=== PATIENT | female | born 1995 | race Hispanic/Latino ===

== ENCOUNTER 2018-01-18 08:51 | Inpatient (IN) | payer MEDICAID, OTHER, SELFPAY ==
[2018-01-18 09:34] VITALS: BMI 32.3
[2018-01-18] MEDS: Lactated Ringer's 1,000 ML IV SCH ×2 (10:05→14:30)
--- NOTE | 2018-01-18 10:21 | PDOC.LDHP ---
Labor and Delivery H&P Chief complaint: contractions, loss of fluid HPI: 22 yo @ 39w1d by LMP c/w 11 wk CRL. Antepartum course benign. Due date: 01/23/18 Dating criteria: last menstrual period Grav: 2 Para: 1 OB History Details: TSVD 2014 Current complications: none Abnormal US findings: No Past Medical History: Denies Current medications: pre-caitlyn vitamins Previous surgical history: none Allergies/Adverse Reactions: Allergies Allergy/AdvReac Type Severity Reaction Status Date / Time No Known Allergies Allergy Unverified 01/18/18 09:27 Social history: none - Physical Exam Vital signs reviewed and normal: yes (Initial HTN on first assessment, all other wnl.) General: NAD Heart: RRR Lungs: nonlabored breathing Abdomen: gravid Extremeties: no edema FHT: category 1 (140s, mod jolynn, +accels, no decels) [place] contractions every: q6 + min when tracing - Vaginal Exam cm dilated: 3 (per RN exam ) Effacement: 50% Station: -2 - OB Labs Blood type: O RH: positive Antibody Screen: negative HIV: negative RPR: negative HEPSAg: negative 1 hour GCT: negative GBS: negative Urine drug screen: not done Rubella: immune - Assessment L&D Assessment: term rupture in membranes - Plan Plan: admit to L&D, labor augmentation if indicated, informed consent obtained, anesthesia consult for pain management -: Monitor BPs, some mild range. Add preE labs.
[2018-01-18] MEDS ORDERED: Ibuprofen 800 MG TAB PO PRN (10:24)
[2018-01-18] MEDS ORDERED: Promethazine HCl 25 MG/ML VIAL IM PRN ×2 (10:24→14:44)
[2018-01-18] MEDS ORDERED: NS / Oxytocin 40 units/1000ml 1,000 ML IV PRN (10:24)
[2018-01-18] MEDS ORDERED: Ondansetron PF 4 MG/2 ML Vial IVP PRN ×2 (10:24→14:44)
[2018-01-18] MEDS ORDERED: Lidocaine 1% (PF) 30 ML VIAL SC PRN (10:24)
[2018-01-18] MEDS ORDERED: HYDROcodone/Acetaminophen 5/325 mg Tablet PO PRN ×3 (10:24→20:29)
[2018-01-18] MEDS ORDERED: Butorphanol Tartrate 1 MG/ML VIAL SLOW IVP PRN (10:24)
[2018-01-18 10:27] LABS: Hemoglobin 12.7 g/dL (12.0-16.0); Mean Corpuscular HGB CONC 33.9 g/dL (32.0-36.0); Mean Corpuscular Volume 82.6 fL (78.0-98.0); Mean Platelet Volume 8.8 fL (7.4-10.4); Platelet Count 206 thou/uL (130-400); RBC Distribution Width 12.8 % (11.5-14.5); Red Blood Cell (RBC) Count 4.54 mill/uL (4.20-5.40); White Blood Cell (WBC) Count 8.6 thou/uL (4.8-10.8)
[2018-01-18] MEDS ORDERED: NS w/ Oxytocin 10 units 500 ML IV SCH ×2 (10:30)
[2018-01-18] MEDS ORDERED: Lactated Ringer's 1,000 ML IV SCH (10:30)
[2018-01-18 11:07] LABS: HBSAg Index 0.17 S/CO (0-0.99); Hep B Surf Ag Non-Reactive S/CO (NonReactive); Syphilis Antibody Nonreactive (Nonreactive); Syphilis Antibody Index 0.05 S/CO (<1.00 Non-Reactive)
[2018-01-18 11:35] LABS: ALT (SGPT) 10 U/L (8-55); AST (SGOT) 20 U/L (5-34); Albumin 3.3 g/dL (3.5-5.0); Alkaline Phosphatase 130 U/L (40-150); Anion Gap 14 mmol/L (10-20); BUN (Urea Nitrogen) 11 mg/dL (7.0-18.7); Bilirubin, Total 0.4 mg/dL (0.2-1.2); Calc. Creatinine Clearance 184 mL/min (70-130); Calcium 9.2 mg/dL (7.8-10.44); Carbon Dioxide 19 mmol/L (22-29); Chloride 108 mmol/L (98-107); Estimated GFR-MDRD Greater than 90; Globulin 2.9 g/dL (2.4-3.5); Glucose 85 mg/dL (70-105); LDH 240 U/L (125-220); Potassium 4.3 mmol/L (3.5-5.1); Protein, Total 6.2 g/dL (6.0-8.3); Sodium 137 mmol/L (136-145)
[2018-01-18] MEDS ORDERED: Fentanyl 4 mcg/Bup 0.1% Cadd 100 ML ONE (14:21)
[2018-01-18] MEDS ORDERED: diphenhydrAMINE 50 MG/ML VIAL IVP PRN (14:44)
[2018-01-18] MEDS ORDERED: Acetaminophen 325 MG TAB PO PRN (14:44)
[2018-01-18] MEDS ORDERED: Lactated Ringer's 500 ML IV PRN (14:44)
[2018-01-18] MEDS ORDERED: Eucerin (Mineral Oil/Petrolatum,White) 30 gm Jar TOP PRN (14:44)
[2018-01-18] MEDS ORDERED: Naloxone HCl 0.4 mg/ml Vial IVP PRN ×2 (14:44)
[2018-01-18] MEDS ORDERED: ePHEDrine/0.9% NaCl/PF SYRINGE 50 mg/10 ml SLOW IVP PRN (14:44)
[2018-01-18] MEDS ORDERED: Fentanyl 4 mcg/Bupivacaine 0.1% Cassette 100 ML EPIDURAL SCH (14:45)
[2018-01-18] MEDS ORDERED: Communication Order-Pharmacy FS SCH (14:45)
[2018-01-18] MEDS ORDERED: Bupivacaine 0.25% HCL 30 ML VIAL ONE (15:00)
[2018-01-18 15:11] LABS: Bilirubin Negative (Negative); Blood, Urine Small (Negative); Clarity CLEAR (Clear); Glucose, Urine (Dipstick) Negative (Negative); Leukocyte Negative (Negative); Nitrite Negative (Negative); Protein, Urine (Dipstick) Negative (Neg-Trace); Specific Gravity, Urine 1.015 (1.002-1.036); Urobilinogen 0.2 mg/dL (0.2-1.0); pH, Urine 7.5 (5.0-9.0)
[2018-01-18 15:13] LABS: Bacteria/HPF None Seen HPF (None Seen); Hyaline Casts/LPF 4-6 HYALINE CAST LPF (0-3 Hyaline); Pathc Cast-AUWi Flag 1.74 (0-2.49); Squamous Epithelial 0-3 HPF (0-3); WBC/HPF 0-3 HPF (0-3)
--- NOTE | 2018-01-18 17:38 | PDOC.OPDEL ---
OB Operative/Delivery Note Delivery Dr/Surgeon: Alexa Mon DO Pre-Delivery Diagnosis: ruptured membrane Procedure/Post Delivery Dx: spontaneous vaginal delivery Weeks gestation: 39 Anesthesia: epidural - Findings A Sex: female - 1 min: 9 - 5 min: 9 - Additional Findings/Plan Placenta delivered: spontaneous Repaired Obstetrical Laceration: 1st degree Estimated blood loss: QBL 75 cc Compilations/Other Findings: Infant in cephalic presentation. Umbilical cord 65 cm Normal appearing placenta Light meconium stained amniotic fluid Post delivery plan: routine recovery
[2018-01-18] MEDS ORDERED: Zolpidem Tartrate 5 MG TAB PO PRN (20:29)
[2018-01-18] MEDS ORDERED: Preparation H Ointment 28 GM TUBE PR PRN (20:29)
[2018-01-18] MEDS ORDERED: NS / Oxytocin 40 units/1000ml 1,000 ML IV SCH (20:29)
[2018-01-18] MEDS ORDERED: Bisacodyl 10 MG SUPP PR PRN (20:29)
[2018-01-18] MEDS ORDERED: Misoprostol 200 MCG TAB VAG PRN (20:29)
[2018-01-18] MEDS ORDERED: Benzocaine/Menthol 20-0.5% 60 ML CAN TOP PRN (20:29)
[2018-01-18] MEDS ORDERED: Milk Of Magnesia 30 ML UDCUP PO PRN (20:29)
[2018-01-18] MEDS ORDERED: diphenhydrAMINE 25 MG CAP PO PRN (20:29)
[2018-01-18] MEDS ORDERED: Methylergonovine 0.2 MG/ML VIAL IM PRN (20:29)
[2018-01-18] MEDS: Ibuprofen 800 MG TAB PO SCH (21:17)
[2018-01-18] MEDS: Docusate Calcium (SURFAK) 240 MG CAP PO SCH (21:18)
[2018-01-19] MEDS: Ibuprofen 800 MG TAB PO SCH ×2 (06:07→13:41)
[2018-01-19] MEDS: Docusate Calcium (SURFAK) 240 MG CAP PO SCH (08:24)
[2018-01-19] MEDS ORDERED: Prenatal Vitamin 1 TAB PO SCH (09:00)
[2018-01-19 21:36] VITALS: BP 121/71; TEMP 98.6
== END 2018-01-19 21:30 | disposition home or self-care (01) | DRG 807 ==
LOC: L&D/OP 08:51 → L&D 10:19 → 3SW 20:13
PROVIDERS: ADMIT Obstetrics & Gynecology; ATTEND Obstetrics & Gynecology
PROC: 10E0XZZ Delivery of Products of Conception, External Approach (ICD-10-PCS; principal; 2018-01-18)
PROC: 0HQ9XZZ Repair Perineum Skin, External Approach (ICD-10-PCS; 2018-01-18)
DX: O70.0 First degree perineal laceration during delivery (principal); Z37.0 Single live birth; O77.0 Labor and delivery complicated by meconium in amniotic fluid; Z3A.39 39 weeks gestation of pregnancy
CPT/HCPCS: 51702; 80053; 81003; 81015; 83615; 85027; 86780; 86850; 86900; 86901; 87340; 99285; S0020

== ENCOUNTER 2019-06-08 21:18 | Emergency (ER) | payer BC, SELFPAY ==
[2019-06-08 21:53] LABS: #Eosinphils 0.2 thou/uL (0.0-0.7); #Lymphocytes 2.2 thou/uL (1.20-3.40); #Monocytes 0.6 thou/uL (0.11-0.59); #Neutrophils 4.8 thou/uL (1.40-6.50); %Basophils 0.5 % (0.0-1.0); %Lymphocytes 28.6 % (21.0-51.0); %Neutrophils 60.9 % (42.0-75.0); Hemoglobin 13.2 g/dL (12.0-16.0); Mean Corpuscular HGB CONC 33.6 g/dL (32.0-36.0); Mean Corpuscular Hemoglobin 29.4 pg (27.0-31.0); Mean Corpuscular Volume 87.6 fL (78.0-98.0); Mean Platelet Volume 8.1 fL (7.4-10.4); Platelet Count 200 thou/uL (130-400); RBC Distribution Width 11.6 % (11.5-14.5); Red Blood Cell (RBC) Count 4.48 mill/uL (4.20-5.40); White Blood Cell (WBC) Count 7.8 thou/uL (4.8-10.8)
--- NOTE | 2019-06-08 23:15 | ULT ---
PELVIC ULTRASOUND: History: Vaginal bleeding in a female. Technique: Multiplanar grayscale and color doppler images were obtained in a transabdominal ult rasound. Spectral analysis with doppler waveforms of the ovaries performed. FINDINGS: There is a single live intrauterine with heart rate of 157 beats/minute. Estimated age of f etus from today's examination is 13 weeks 5 days. The following measurements were taken: BPD 2.25 cm 13 weeks 5 days HC 8.96 cm 14 weeks 0 days AC 6.96 cm 13 weeks 4 days FL 1.15 cm 13 weeks 3 days The placenta is low lying without evidence of placenta previa. The cervix is normal in length. No free fluid is seen in the pelvis. Both ovaries are normal in size and appearance and demonstrate n ormal flow. IMPRESSION: Single live intrauterine with estimated age of 13 weeks 5 days. POS: EAA
== END 2019-06-09 00:04 | disposition home or self-care (01) ==
LOC: ERS 21:18
DX: O20.0 Threatened abortion (principal); Z3A.15 15 weeks gestation of pregnancy
CPT/HCPCS: 36415; 76856; 84702; 85025; 86900; 86901; 93976

== ENCOUNTER 2019-07-23 13:37 | Outpatient (CLI) | payer BC, OTHER ==
--- NOTE | 2019-07-23 14:57 | ULT ---
OB ULTRASOUND: 07/23/19 HISTORY: anatomy. FINDINGS: A single live intrauterine gestation is seen with measurements corresponding to an estimated gestatio nal age of 20 weeks, 2 days and DOROTHY at 12/08/19. Estimated weight measures 328 grams or 12 oz ( 3% by Hadlock criteria). measurements are as follows: BPD 4.90 cm 20 weeks, 6 days HC 17.51 cm 20 weeks, 1 day AC 15.10 cm 20 weeks, 3 days FL 3.10 cm 19 weeks, 5 days heart rate measures 150 beats per minute. Placenta is posteriorly located without evidence of p lacenta previa. GLENDY measures 12.8 cm. Cervical length measures 5.4 cm. There is a three vessel cord, cord insertion, kidneys, bladder, stomach, four chambered heart, lateral ventricles, cerebellum, spine, lips/nose upper and lower extremities are visualized. No defin ite anomalies are seen. IMPRESSION: Single live IUD of 20 weeks, 2 days estimated gestational age and DOROTHY at 12/08/19. POS: HOWARDDI
== END 2019-07-23 13:38 | disposition home or self-care (01) ==
LOC: BICULT 13:37
PROVIDERS: ATTEND Nurse Practitioner
DX: Z34.82 Encounter for supervision of other normal pregnancy, second trimester (principal); Z3A.20 20 weeks gestation of pregnancy
CPT/HCPCS: 76805

== ENCOUNTER 2019-11-17 19:19 | Observation (INO) | payer BC, OTHER ==
[2019-11-17 19:51] VITALS: BMI 35.5
[2019-11-17 19:57] VITALS: BP 136/71
[2019-11-17] MEDS ORDERED: hydrALAZINE 20 MG/ML VIAL SLOW IVP PRN ×2 (22:49)
[2019-11-17] MEDS ORDERED: Butorphanol Tartrate 1 MG/ML VIAL SLOW IVP PRN (22:49)
[2019-11-17] MEDS ORDERED: Ondansetron PF 4 MG/2 ML Vial IVP PRN (22:49)
[2019-11-17] MEDS ORDERED: Promethazine HCl 25 MG/ML VIAL IM PRN (22:49)
[2019-11-17] MEDS ORDERED: Lactated Ringer's 1,000 ML IV SCH (23:00)
[2019-11-18 01:26] LABS: Hemoglobin 12.2 g/dL (12.0-16.0); Mean Corpuscular HGB CONC 32.4 g/dL (32.0-36.0); Mean Corpuscular Hemoglobin 27.7 pg (27.0-31.0); Mean Corpuscular Volume 85.6 fL (78.0-98.0); Mean Platelet Volume 8.7 fL (7.4-10.4); Platelet Count 190 thou/uL (130-400); RBC Distribution Width 12.7 % (11.5-14.5); Red Blood Cell (RBC) Count 4.41 mill/uL (4.20-5.40); White Blood Cell (WBC) Count 7.8 thou/uL (4.8-10.8)
--- NOTE | 2019-11-18 01:50 | HP ---
PRIMARY OB: Von Saenz MD CHIEF COMPLAINT: Abdominal pain. HISTORY OF PRESENT ILLNESS: The patient is a 24-year-old G3, P2 female with an intrauterine at 38 weeks and a day, who is presenting to Labor and Delivery with a several-day history of uterine contractions that she reports has intensified over the last 24 hours and reports them about every 4 to 6 minutes. The patient also reports some frustration that she does not want to go several more days feeling the contractions that she has been feeling. She denies vaginal bleeding or leakage of fluid. She denies fever, cough, headache, chest pain, shortness of breath, nausea, vomiting, diarrhea, constipation, hip problems, knee problems, and muscle weakness. PAST MEDICAL HISTORY: Negative. PAST SURGICAL HISTORY: Negative. SOCIAL HISTORY: Denies drug, alcohol, tobacco use. ALLERGIES: NO KNOWN DRUG ALLERGIES. MEDICATIONS: Hydroxyzine. OB LABS: Blood type is O positive. Antibody screen is negative. RPR is nonreactive in the first and third trimester. HIV is nonreactive in the first and third trimester. Hepatitis B surface antigen is negative. She is rubella immune. GC and chlamydia negative. 1-hour Glucola is 102. GBS is negative. REVIEW OF SYSTEMS: Per HPI. PHYSICAL EXAMINATION: VITAL SIGNS: Blood pressure is 136/71, heart rate of 75, respiratory rate of 18, saturating 99% on room air. GENERAL: She appears to be in no acute distress. She is alert, oriented, cooperative, and pleasant to interact with. HEENT: Head is normocephalic, atraumatic. LUNGS: Clear to auscultation bilaterally. HEART: Has a regular rate and rhythm. ABDOMEN: Gravid, soft, nontender. EXTREMITIES: Nontender. Minimal edema. PELVIC: Cervical exam per nursing staff is 350, -3 station, 2-1/2 hours later patient is 460, -3 station. heart tracing shows the fetus with a baseline in the 120s with moderate long-term variability, positive 15 x 15 accelerations, no decelerations. Tocometer showing a lot of irritability with infrequent contractions about every 12 to 6 minutes. Repeat cervical exam again was 460 -3 station. ASSESSMENT/PLAN: Given the cervical change yet having very irregular contraction pattern quite infrequent at times. Decision was made to put the patient in observation and to watch through the night to see if she progresses into an active labor stage. The patient has the need for pain medication at this time per her request. Fetus has a category 1 tracing and reactive NST. Again, we will be rechecking her in the morning or in the middle of the night if indicated for evaluation of active labor. Dr. Saenz, her primary OB, will be given an update at that time. Job ID: [id number]
[2019-11-18 02:01] LABS: HBSAg Index 0.26 S/CO (0-0.99); Hep B Surf Ag Non-Reactive S/CO (NonReactive)
[2019-11-18 04:19] LABS: Syphilis Antibody Nonreactive (Nonreactive); Syphilis Antibody Index 0.02 S/CO (<1.00 Non-Reactive)
--- NOTE | 2019-11-18 08:46 | DIS ---
DATE OF ADMISSION: 11/18/2019 DATE OF DISCHARGE: 11/18/2019 DATE OF ENCOUNTER: 11/17/2019. ADMITTING DIAGNOSIS: Intrauterine at 38 weeks with contractions. DISCHARGE DIAGNOSIS: False labor. HOSPITAL COURSE: The patient is a 24-year-old multiparous female, presenting to Labor and Delivery with contractions and cervical exam of 3 cm, reported to change to 4 cm over the subsequent 2 hours. However, the patient had continued very irregular contractions and was admitted for observation overnight. This morning, the patient continues to have contractions, but irregular also in nature. Repeat cervical exam this morning was no change, was 3 and 50. Fetus continues to have category 1 tracing with a baseline in the 130s with moderate long-term variability, positive 15 x 15 accelerations, no decelerations. Contractions appeared to be about every 10 minutes. PHYSICAL EXAMINATION: VITAL SIGNS: At the time of discharge, blood pressure of 120/62, heart rate of 82, respiratory rate of 16, and temperature 97.9. GENERAL: She appears to be in no acute distress. She is alert, oriented, cooperative, and pleasant to interact with. The patient expressed interest in delivery and induction. We shared with her that she can communicate her interest with her provider, Dr. Saenz, who can make plan with her in that regard. The patient having no evidence of active labor and having been present here for observation for now upwards of 9 to 10 hours without any change. She is being discharged to home. Of note, the patient did not require or request any pain medication during that time. Job ID: [id number]
== END 2019-11-18 07:50 | disposition home or self-care (01) ==
LOC: L&D/OP 19:19 → L&D 11-18 01:59
PROVIDERS: ADMIT Family Medicine; ATTEND Family Medicine
DX: O47.1 False labor at or after 37 completed weeks of gestation (principal); Z3A.38 38 weeks gestation of pregnancy; Z88.8 Allergy status to other drugs, medicaments and biological substances
CPT/HCPCS: 36415; 85027; 86780; 86850; 86900; 86901; 87340; 99285; G0378

== ENCOUNTER 2019-11-20 08:15 | Outpatient (CLI) | payer BC, OTHER ==
[2019-11-20 19:47] LABS: SARS-CoV-2 MS2 Positive; SARS-CoV-2 N Gene Negative; SARS-CoV-2 S Gene Negative; SARS-CoV-2 by NAA Not Detected (NotDetected); SARS-CoV-2 orf1ab Negative
== END 2019-11-20 08:16 | disposition home or self-care (01) ==
LOC: LABBT 08:15
PROVIDERS: ATTEND Family Medicine
DX: Z20.828 Contact with and (suspected) exposure to other viral communicable diseases (principal)
CPT/HCPCS: 87635; U0003

== ENCOUNTER 2019-11-23 05:30 | Inpatient (IN) | payer BC, OTHER, SELFPAY ==
[2019-11-23] MEDS ORDERED: hydrALAZINE 20 MG/ML VIAL SLOW IVP PRN ×2 (07:42→17:05)
[2019-11-23] MEDS ORDERED: Ondansetron PF 4 MG/2 ML Vial IVP PRN ×3 (07:42→17:05)
[2019-11-23] MEDS ORDERED: Misoprostol 100 MCG TAB VAG SCH (07:42)
[2019-11-23] MEDS ORDERED: Diphenoxylate HCl/Atropine Tablet PO PRN (07:42)
[2019-11-23] MEDS ORDERED: NS w/ Oxytocin 10 units 500 ML IV SCH ×2 (07:42)
[2019-11-23] MEDS ORDERED: Methylergonovine 0.2 MG/ML VIAL IM PRN (07:42)
[2019-11-23] MEDS ORDERED: HYDROcodone/Acetaminophen 5/325 mg Tablet PO PRN ×3 (07:42→17:05)
[2019-11-23] MEDS ORDERED: Carboprost 250 MCG/ML AMP IM PRN (07:42)
[2019-11-23] MEDS ORDERED: NS / Oxytocin 40 units/1000ml 1,000 ML IV PRN (07:42)
[2019-11-23] MEDS ORDERED: Promethazine HCl 25 MG/ML VIAL IM PRN ×2 (07:42→14:56)
[2019-11-23] MEDS ORDERED: Misoprostol 200 MCG TAB PR PRN (07:42)
[2019-11-23] MEDS ORDERED: Ibuprofen 800 MG TAB PO PRN (07:42)
[2019-11-23] MEDS ORDERED: Butorphanol Tartrate 1 MG/ML VIAL SLOW IVP PRN (07:42)
[2019-11-23] MEDS ORDERED: Lidocaine 1% (PF) 30 ML VIAL SC PRN (07:42)
[2019-11-23 08:01] VITALS: BMI 35.3
[2019-11-23] MEDS: Lactated Ringer's 1,000 ML IV SCH ×2 (08:09→13:34)
[2019-11-23 08:29] LABS: Hemoglobin 12.3 g/dL (12.0-16.0); Mean Corpuscular HGB CONC 33.7 g/dL (32.0-36.0); Mean Corpuscular Hemoglobin 28.3 pg (27.0-31.0); Mean Platelet Volume 8.8 fL (7.4-10.4); Platelet Count 203 thou/uL (130-400); RBC Distribution Width 12.8 % (11.5-14.5); Red Blood Cell (RBC) Count 4.35 mill/uL (4.20-5.40); White Blood Cell (WBC) Count 7.6 thou/uL (4.8-10.8)
[2019-11-23] MEDS ORDERED: Bupivacaine 0.25% HCL 30 ML VIAL ONE (08:36)
[2019-11-23 09:27] LABS: HBSAg Index 0.13 S/CO (0-0.99); Hep B Surf Ag Non-Reactive S/CO (NonReactive); Syphilis Antibody Nonreactive (Nonreactive); Syphilis Antibody Index 0.03 S/CO (<1.00 Non-Reactive)
[2019-11-23] MEDS ORDERED: Fentanyl 4 mcg/Bup 0.1% Cadd 100 ML ONE (13:40)
[2019-11-23] MEDS ORDERED: Acetaminophen 325 MG TAB PO PRN (14:56)
[2019-11-23] MEDS ORDERED: diphenhydrAMINE 50 MG/ML VIAL IVP PRN (14:56)
[2019-11-23] MEDS ORDERED: EPHEDRINE 25 MG/5 ML SYRINGE SLOW IVP PRN (14:56)
[2019-11-23] MEDS ORDERED: Naloxone HCl 0.4 mg/ml Vial IVP PRN ×2 (14:56)
[2019-11-23] MEDS ORDERED: Lactated Ringer's 500 ML IV PRN (14:56)
[2019-11-23] MEDS ORDERED: Fentanyl 4 mcg/Bupivacaine 0.1% Cassette 100 ML EPIDURAL SCH (15:00)
[2019-11-23] MEDS ORDERED: Communication Order-Pharmacy FS SCH (15:00)
[2019-11-23] MEDS: NS / Oxytocin 40 units/1000ml 1,000 ML IV SCH ×2 (16:18→17:40)
[2019-11-23] MEDS ORDERED: Ferrous Sulfate 325 MG TAB PO SCH (17:00)
[2019-11-23] MEDS ORDERED: Milk Of Magnesia 30 ML UDCUP PO PRN (17:05)
[2019-11-23] MEDS ORDERED: Preparation H Ointment 28 GM TUBE PR PRN (17:05)
[2019-11-23] MEDS ORDERED: Bisacodyl 10 MG SUPP PR PRN (17:05)
[2019-11-23] MEDS ORDERED: Benzocaine-Menthol 82.5 ML CAN TOP PRN (17:05)
[2019-11-23] MEDS ORDERED: diphenhydrAMINE 25 MG CAP PO PRN (17:05)
[2019-11-23] MEDS ORDERED: Lanolin Ointment 7 GM TUBE TOP PRN (17:05)
[2019-11-23] MEDS: Docusate Calcium (SURFAK) 240 MG CAP PO SCH (19:46)
[2019-11-23] MEDS: Ibuprofen 800 MG TAB PO SCH (19:46)
[2019-11-24] MEDS: Ibuprofen 800 MG TAB PO SCH ×2 (05:32→14:20)
[2019-11-24] MEDS: Docusate Calcium (SURFAK) 240 MG CAP PO SCH (08:10)
[2019-11-24] MEDS ORDERED: Adacel (T-DAP) 0.5 ML SYRINGE IM ONE (09:00)
[2019-11-24] MEDS ORDERED: Prenatal Vitamin 1 TAB PO SCH (09:00)
[2019-11-24 12:30] VITALS: BP 124/58; TEMP 98
== END 2019-11-24 19:15 | disposition home or self-care (01) | DRG 807 ==
LOC: L&D 07:17 → 3SW 18:37
PROVIDERS: ADMIT Family Medicine; ATTEND Family Medicine
PROC: 10E0XZZ Delivery of Products of Conception, External Approach (ICD-10-PCS; principal; 2019-11-23)
PROC: 10907ZC Drainage of Amniotic Fluid, Therapeutic from Products of Conception, Via Natural or Artificial Opening (ICD-10-PCS; 2019-11-23)
PROC: 3E033VJ Introduction of Other Hormone into Peripheral Vein, Percutaneous Approach (ICD-10-PCS; 2019-11-23)
DX: O80 Encounter for full-term uncomplicated delivery (principal); Z37.0 Single live birth; Z3A.39 39 weeks gestation of pregnancy
CPT/HCPCS: 51702; 85027; 86780; 86850; 86900; 86901; 87340; 87635; J2590; S0020; U0003